=== PATIENT | female | born 1995 | race African-American/Black ===

== ENCOUNTER 2020-06-13 19:40 | Emergency (ER) | payer MEDICAID, SELFPAY ==
[2020-06-13 20:31] LABS: Pregnancy Test - Urine (BHCG) Negative (Negative); Pregu Control Background? CLEAR/WHITE (CLR/WHITE); Pregu Control Bar Appear? YES (CONTROL BAR)
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
== END 2020-06-13 21:03 | disposition home or self-care (01) ==
LOC: ERS 19:40
DX: M54.6 Pain in thoracic spine (principal); M54.5 Low back pain; J45.909 Unspecified asthma, uncomplicated; V43.52XA Car driver injured in collision with other type car in traffic accident, initial encounter
CPT/HCPCS: 72070; 72100; 81025